=== PATIENT | male | born 1965 ===

== ENCOUNTER 2017-05-12 05:56 | Observation (INO) | payer MEDICAID ==
[2017-05-12 05:56] VITALS: BMI 34.7
--- NOTE | 2017-05-12 06:38 | ED PDOC ---
HPI:STROKE - Time Time: 06:20 - Historian Historian: Patient - Chief Complaint Chief Complaint: Weakness, Numbness - Onset Onset: Days - Timing Timing: Currently Symptomatic - Location Locate left: Upper extremity - TPA Positive for Contraindication: No Reason tPA is not being Administered: Onset occurred days ago - Notes: Notes:: 51 year old male presents to ED with complaints of LUE/LLE weakness and numbness x1 week and has a past medical history of pre-DM. Patient states his friend convinced him to present to ED after noticing unsteady gait and " dragging his feet" when he walked. (-) headache. PCP: Peter Handley NIHSS Stroke Scale - Date/Time Evaluation Performed Date Performed: 05/12/17 Time Performed: :31 - How Severe is the Stroke Level of Consciousness: 0=Alert LOC to Questions: 0=Both comments correct LOC to commands: 0=Obeys both correctly Best Gaze: 0=Normal Visual: 0=No visual loss Facial: 1=Minor asymmetry Motor Arm - Left: 1=Drift noted before 10 sec Motor Arm - Right: 0=No drift Motor Leg - Left: 1=Drift before 5 sec Motor Leg - Right: 0=No drift Limb Ataxia: 0=Absent Sensory: 0=Normal Best Language: 0=No aphasia Dysarthia: 1=Mild to moderate slurring Extinction & Inattention (Neglect): 0=Normal, no object Score: 4 rTPA Inclusion/Exclusion - Refusal of Treatment Patient Refused Treatment: No - Inclusion Criteria for Altepase Patient is 18 years or Older: Yes The Clinical Diagnosis of Ischemic Stroke That is Causing a Potentially Disabling Neurological Deficit: No Time of Onset is Well Established to be Less Than 270 Minute Before Treatment Would Begin: No Risk/Benefit Discussed With Patient/Family Member Present: No - Exclusion Criteria for Altepase Uncontrolled Hypertension at Time of Treatment (Systolic BP above 185 or Diastolic BP above 110 mmHg): No Active Internal Bleeding: No Known Bleeding Diathesis Including but Not Limited to: Platelets Below 100,000/ mm,PTT Above 40 sec After Heparin Use, Current Use of Oral Anitcoagulant With INR Greater Than 1.7 or PT Greater Than 15 secs: No Evidence of an Intracranial Hemorrhage: No Evidence of Major Acute Infarct With Signs Greater Than 1/3 MCA Territory: No Suspicion of Subarachnoid Hemorrhage on Pretreatment Evaluation Even if CT Head Negative For Hemorrhage: No - Warning to TPA With Conditions Following Conditions Weighed Against Anticipated Benefit: Yes Condition: Care Team Unable to Determine Eligibilty (Onset occurred days ago) Past Medical History Reviewed: Historical Data, Nursing Documentation, Vital Signs Vital Signs: Last Vital Signs Temp 98.5 F 05/12/17 06:11 Pulse 124 H 05/12/17 06:11 Resp 22 05/12/17 06:11 BP 115/79 05/12/17 06:11 Pulse Ox 96 05/12/17 06:11 - Medical History PMH: Anemia, Asthma, Diabetes, Pulmonary Embolism Denies: Atrial Fibrillation, CAD, Cardia Arrhythmia, CHF, HTN, Hypercholesterolemia, Mitral Valve Prolapse, Peripheral Edema, Chronic Kidney Disease - Surgical History Surgical History: Tonsillectomy Denies: Pacemaker - Family History Family History: States: Unknown Family Hx - Social History Current smoker - smoking cessation education provided: Yes Ex-Smoker (has not smoked in the last 12 months): No Alcohol: None Drugs: Cocaine - Immunization History Hx Tetanus Toxoid Vaccination: Yes Hx Influenza Vaccination: Yes Hx Pneumococcal Vaccination: No - Allergies Allergies/Adverse Reactions: Allergies Allergy/AdvReac Type Severity Reaction Status Date / Time Penicillins Allergy RASH Verified 05/12/17 06:11 Review of Systems ROS Statement: Except As Marked, All Systems Reviewed And Found Negative Neurological: Positive for: Weakness (LLE/LUE), Numbness (LLE/LUE). Negative for: Headache Physical Exam - Reviewed Nursing Documentation Reviewed: Yes Vital Signs Reviewed: Yes - Physical Exam Appears: Positive for: Non-toxic, No Acute Distress Head Exam: Positive for: ATRAUMATIC, NORMOCEPHALIC Skin: Positive for: Normal Color, Warm, Dry Eye Exam: Positive for: Normal appearance, EOMI, PERRL ENT: Positive for: Normal ENT Inspection Neck: Positive for: Normal, Painless ROM, Supple Cardiovascular/Chest: Positive for: Regular Rate, Rhythm. Negative for: Murmur Respiratory: Positive for: Normal Breath Sounds. Negative for: Respiratory Distress Gastrointestinal/Abdominal: Positive for: Normal Exam, Soft. Negative for: Tenderness Back: Positive for: Normal Inspection Extremity: Positive for: Normal ROM. Negative for: Deformity Neurologic/Psych: Positive for: Alert, Oriented, Cerebellar Tests ((+) left pronator drift. (+) cerebellar ataxia), Gait (unsteady), Aphasia (mild slurring) , Facial Droop (mild left sided). Negative for: Motor/Sensory Deficits (5/5 strength bilaterally, sensation intact) - ECG O2 Sat by Pulse Oximetry: 96 (RA) Pulse Ox Interpretation: Normal Medical Decision Making Medical Decision Makin Initial impression: CVA Initial plan: * T&S * CT HEAD * EKG * Labs * UDrug screen * Hemoglobin A1C * Lipid panel * Trop I * PTT/PT * CXR 0700 Patient will be signed out to Dr. Zamorano pending work up. Scribe Attestation: Documented by Alysa Minaya acting as a scribe for Bautista Lopez MD. Scribe Attestation: All medical record entries made by the Scribe were at my direction and personally dictated by me. I have reviewed the chart and agree that the record accurately reflects my personal performance of the history, physical exam, medical decision making, and the department course for this patient. I have also personally directed, reviewed, and agree with the discharge instructions and disposition. Disposition - Clinical Impression Clinical Impression: Numbness on left side - Disposition Disposition: Transfer of Care Disposition Time: 07:00 Condition: STABLE Forms: [employer] (Telugu) Patient Signed Over To: Robles Zamorano Jr. Handoff Comments: Pending work up
--- NOTE | 2017-05-12 07:16 | ED PDOC ---
- Laboratory Results Result Diagrams: 05/12/17 07:10 05/12/17 07:10 - ECG O2 Sat by Pulse Oximetry: 96 (RA) Pulse Ox Interpretation: Normal Medical Decision Making Medical Decision Making: Time: 07:00 --Patient endorsed from Dr. Lopez to me. --Pending full work-up. --Head CT FINDINGS: No intracranial hemorrhage. No intracranial edema. No evidence of infarct. Mild mucosal thickening of the right ethmoid sinus. The mastoid air cells are clear. The osseous structures are normal. IMPRESSION: No acute findings. Scribe Attestation: Documented by Teri Avila, acting as a scribe for Robles Zamorano MD. Provider Scribe Attestation: All medical record entries made by the Scribe were at my direction and personally dictated by me. I have reviewed the chart and agree that the record accurately reflects my personal performance of the history, physical exam, medical decision making, and the department course for this patient. I have also personally directed, reviewed, and agree with the discharge instructions and disposition. Disposition - Clinical Impression Clinical Impression: Numbness on left side, Hyperglycemia, Alcohol intoxication - POA Present On Arrival: None - Disposition Disposition: Routine/Home Disposition Time: 13:08 Condition: STABLE ED OBSERVATION Date of observation admission: 05/12/17 Time of observation admission: 11:23 - Observation admission statement Patient is being placed in observation because:: Pt with prolonged altered mental status (somnolence) secondary to alcohol intoxication. - Goals of Observation Goals of observation are:: Improvement of mental status - Progress Note Progress Note: 05/12/17 13:00 Pt is awake and feels better. Pt states these symptoms have been present for a long time. Pt will follow up as an outpatient.
--- NOTE | 2017-05-12 07:19 | CT ---
EXAM: CT Head Without Intravenous Contrast EXAM DATE/TIME: 05/12/2017 6:26 AM CLINICAL HISTORY: 51 years old, male; Signs and symptoms; Weakness, extremity; Left; Additional info: L sided weakness TECHNIQUE: Axial computed tomography images of the head/brain without intravenous contrast. All CT scans at this facility use one or more dose reduction techniques, viz.: automated exposure control; ma/kV adjustment per patient size (including targeted exams where dose is matched to indication; i.e. head); or iterative reconstruction technique. Coronal and sagittal reformatted images were created and reviewed. COMPARISON: CT - HEAD W/O CONTRAST 02/02/2016 6:42:00 AM FINDINGS: No intracranial hemorrhage. No intracranial edema. No evidence of infarct. Mild mucosal thickening of the right ethmoid sinus. The mastoid air cells are clear. The osseous structures are normal. IMPRESSION: No acute findings.
[2017-05-12 07:24] LABS: BASO % 0.6 % (0.0-2.0); EOS # 0.1 K/uL (0.0-0.7); EOS % 0.8 % (0.0-4.0); HEMATOCRIT 45.6 % (35.0-51.0); LYMPH # 2.5 K/uL (1.0-4.3); MEAN CELL VOLUME 90.9 fl (80.0-94.0); MEAN CORPUSCULAR HEMOGLOBIN 30.3 pg (27.0-31.0); MEAN CORPUSCULAR HGB CONC 33.3 g/dL (33.0-37.0); MEAN PLATELET VOLUME 7.9 fl (7.2-11.7); MONO # 0.7 K/uL (0.0-0.8); MONO % 10.2 % (0.0-10.0); NEUT # 3.5 K/uL (1.8-7.0); NEUT % 51.4 % (50.0-75.0); NRBC % 0.1 % (0.0-0.0); RED CELL DISTRIBUTION WIDTH 20.3 % (11.5-14.5); WHITE BLOOD COUNT 6.7 K/uL (4.8-10.8)
[2017-05-12 07:27] LABS: ALB/GLOB RATIO 1.2 (1.0-2.1); ALKALINE PHOSPHATASE 61 U/L (38-126); ALT/SGPT 124 U/L (21-72); AST/SGOT 92 U/L (17-59); BILIRUBIN,TOTAL 1.2 mg/dl (0.2-1.3); BLOOD UREA NITROGEN 7 mg/dl (9-20); CALCIUM 9.4 mg/dL (8.4-10.2); CARBON DIOXIDE 21 mmol/L (22-30); CHLORIDE 112 mmol/L (98-107); CHOLESTEROL 116 mg/dL (0-199); GFR AFRICAN-AMERICAN > 60; GLUCOSE,RANDOM 202 mg/dL (75-110); SODIUM 148 mmol/l (132-148); TOTAL PROTEIN 8.3 G/DL (6.3-8.2)
[2017-05-12 07:42] LABS: PARTIAL THROMBOPLASTIN TIME 30.6 Seconds (25.6-37.1)
--- NOTE | 2017-05-12 09:08 | CARD ---
APPROVED REPORT EKG Measurement Heart [id number] MI [id number] <Conclusion> Sinus tachycardia Nonspecific T wave abnormality Abnormal ECG
--- NOTE | 2017-05-12 09:28 | RAD ---
HISTORY: Left-sided weakness. COMPARISON: Comparison chest dated 02/02/2016 FINDINGS: LUNGS: Poor inspiration with low lung volumes, crowded bronchovascular markings and minor bibasilar atelectasis. PLEURA: No significant pleural effusion identified, no pneumothorax apparent. CARDIOVASCULAR: Normal. OSSEOUS STRUCTURES: No significant abnormalities. VISUALIZED UPPER ABDOMEN: Normal. OTHER FINDINGS: None. IMPRESSION: Poor inspiration with low lung volumes, crowded bronchovascular markings and minor bibasilar atelectasis. .
[2017-05-12 13:44] VITALS: BP 120/78; PULSE 87; RESP 19; TEMP 98
[2017-05-19 17:54] VITALS: O2SAT 96
== END 2017-05-12 13:43 | disposition home or self-care (01) ==
LOC: H.ER 05:56 → H.EROBSV 11:21
PROVIDERS: ADMIT Emergency Medicine; ATTEND Emergency Medicine
DX: R41.82 Altered mental status, unspecified (principal); F10.129 Alcohol abuse with intoxication, unspecified; R20.0 Anesthesia of skin; E11.65 Type 2 diabetes mellitus with hyperglycemia; F17.200 Nicotine dependence, unspecified, uncomplicated; J45.909 Unspecified asthma, uncomplicated
CPT/HCPCS: 70450; 71010; 80053; 80061; 80320; 80324; 80345; 80346; 80349; 80353; 80358; 80361; 83036; 83992; 84484; 85025; 85610; 85730; 86850; 86900; 93005; 99285; G0378

== ENCOUNTER 2017-06-22 05:02 | Observation (INO) | payer MEDICAID ==
[2017-06-22 05:20] VITALS: BMI 34.4
--- NOTE | 2017-06-22 05:26 | ED PDOC ---
HPI: Chest Pain Time Seen by Provider: 06/22/17 05:07 Chief Complaint (Nursing): Chest Pain Chief Complaint (Provider): Chest pain History Per: Patient History/Exam Limitations: no limitations Onset/Duration Of Symptoms: Days, Persistent Current Symptoms Are (Timing): Still Present Additional History Per: Patient Additional Complaint(s): The patient is a 52 yo male, past medical history of diabetes, presents to the ED for evaluation of chest pain present for the past couple weeks. He reports the pain is occasionally present on his right chest and occasionally on his left. Patient also reports associated upper back pain and posterior neck pain. patient states for the past couple months, he has occasional numbness to his extremities. He admits to drinking alcohol tonight but denies any drug use. No other medical complaints. Past Medical History Reviewed: Historical Data, Nursing Documentation, Vital Signs Vital Signs: Last Vital Signs Temp 98.5 F 06/22/17 05:14 Pulse 114 H 06/22/17 05:14 Resp 18 06/22/17 05:14 BP 129/79 06/22/17 05:14 Pulse Ox 96 06/22/17 06:43 - Medical History PMH: Anemia, Asthma, Diabetes, Pulmonary Embolism Denies: Atrial Fibrillation, CAD, Cardia Arrhythmia, CHF, HTN, Hypercholesterolemia, Mitral Valve Prolapse, Peripheral Edema, Chronic Kidney Disease - Surgical History Surgical History: Tonsillectomy Denies: Pacemaker - Family History Family History: States: No Known Family Hx, Unknown Family Hx - Immunization History Hx Tetanus Toxoid Vaccination: Yes Hx Influenza Vaccination: Yes Hx Pneumococcal Vaccination: No - Home Medications Home Medications: Ambulatory Orders Medication Instructions Recorded Aspirin 1 tab PO DAILY #30 tab.chew 05/12/17 - Allergies Allergies/Adverse Reactions: Allergies Allergy/AdvReac Type Severity Reaction Status Date / Time Penicillins Allergy RASH Verified 05/12/17 06:11 Review of Systems ROS Statement: Except As Marked, All Systems Reviewed And Found Negative ENT: Positive for: Ear Pain Musculoskeletal: Positive for: Neck Pain, Back Pain Neurological: Positive for: Numbness Physical Exam - Reviewed Nursing Documentation Reviewed: Yes Vital Signs Reviewed: Yes - Physical Exam Appears: Positive for: No Acute Distress Head Exam: Positive for: ATRAUMATIC, NORMAL INSPECTION, NORMOCEPHALIC Skin: Positive for: Warm, Dry Eye Exam: Positive for: Normal appearance Neck: Positive for: Normal, Supple Cardiovascular/Chest: Positive for: Regular Rate, Rhythm Respiratory: Positive for: Normal Breath Sounds. Negative for: Respiratory Distress Neurologic/Psych: Positive for: Alert, drug clerk II-XII (intact), Oriented, Mood/ Affect (normal ), Cerebellar Tests (normal ), Gait (normal ). Negative for: Motor/Sensory Deficits, Aphasia, Facial Droop - Laboratory Results Result Diagrams: 06/22/17 05:50 06/22/17 05:50 - ECG O2 Sat by Pulse Oximetry: 96 (RA) Pulse Ox Interpretation: Normal Medical Decision Making Medical Decision Making: Time: 519 Impression: Non-cardiac chest pain, alcohol intoxication Plan: -- Labs -- Chest x-ray -- Toradol 15 mg IV -- ED Obs pending troponin Reassess Scribe Attestation: Documented by Jackie Finn acting as a scribe for Bautista Lopez MD. Provider Attestation: All medical record entries made by the Scribe were at my direction and personally dictated by me. I have reviewed the chart and agree that the record accurately reflects my personal performance of the history, physical exam, medical decision making, and the department course for this patient. I have also personally directed, reviewed, and agree with the discharge instructions and disposition. ED OBSERVATION Date of observation admission: 06/22/17 Time of observation admission: 05:21 - Observation admission statement Patient is placed on observation because of need: for serial examinations to determine stability for disposition - Progress Note Progress Note: 06/22/17 06:42 Patient to be signed out to Dr. Lester pending troponin results, re-evaluation and disposition. Disposition - Clinical Impression Clinical Impression: Atypical chest pain, Alcohol intoxication - Patient ED Disposition Is Patient to be Admitted: Transfer of Care - Disposition Disposition: Transfer of Care Disposition Time: 05:21 Condition: STABLE Patient Signed Over To: Magalie Lester Handoff Comments: Pending troponin, re-eval, disposition
[2017-06-22 06:04] LABS: BASO % 0.6 % (0.0-2.0); EOS # 0.1 K/uL (0.0-0.7); EOS % 1.7 % (0.0-4.0); HEMATOCRIT 44.9 % (35.0-51.0); LYMPH # 2.2 K/uL (1.0-4.3); LYMPH % 30.2 % (20.0-40.0); MEAN CELL VOLUME 93.5 fl (80.0-94.0); MEAN CORPUSCULAR HEMOGLOBIN 31.3 pg (27.0-31.0); MEAN CORPUSCULAR HGB CONC 33.5 g/dL (33.0-37.0); MEAN PLATELET VOLUME 7.8 fl (7.2-11.7); MONO # 0.5 K/uL (0.0-0.8); MONO % 6.9 % (0.0-10.0); NEUT # 4.5 K/uL (1.8-7.0); NEUT % 60.6 % (50.0-75.0); NRBC % 0.1 % (0.0-0.0); WHITE BLOOD COUNT 7.4 K/uL (4.8-10.8)
[2017-06-22 06:21] LABS: ALCOHOL SERUM 144 mg/dl (0-10); BLOOD UREA NITROGEN 8 mg/dl (9-20); CALCIUM 9.6 mg/dL (8.4-10.2); CARBON DIOXIDE 22 mmol/L (22-30); GFR AFRICAN-AMERICAN > 60; GLUCOSE,RANDOM 184 mg/dL (75-110); PARTIAL THROMBOPLASTIN TIME 29.4 Seconds (25.6-37.1); POTASSIUM 3.9 MMOL/L (3.6-5.0); SODIUM 148 mmol/l (132-148)
[2017-06-22 06:30] LABS: CHLORIDE 108 mmol/L (98-107)
--- NOTE | 2017-06-22 07:01 | ED PDOC ---
- Laboratory Results Result Diagrams: 06/22/17 05:50 06/22/17 05:50 - ECG O2 Sat by Pulse Oximetry: 96 (RA) Medical Decision Making Medical Decision Makin -Patient transferred to [place] by Dr. Lopez, pending Troponin results. Second troponin WNL. Disposition - Clinical Impression Clinical Impression: Atypical chest pain, Alcohol intoxication - POA Present On Arrival: None - Disposition Disposition: Routine/Home Disposition Time: 10:43 Condition: STABLE
[2017-06-22 08:13] VITALS: RESP 16
--- NOTE | 2017-06-22 09:32 | RAD ---
HISTORY: cp COMPARISON: 05/12/2017 TECHNIQUE: Chest PA and lateral FINDINGS: LUNGS: No active pulmonary disease. PLEURA: No significant pleural effusion identified. No pneumothorax apparent. CARDIOVASCULAR: Normal. OSSEOUS STRUCTURES: No significant abnormalities. VISUALIZED UPPER ABDOMEN: Normal. OTHER FINDINGS: None. IMPRESSION: No active disease.
[2017-06-22 11:09] VITALS: BP 115/72; PULSE 91; TEMP 97.9; O2SAT 99
--- NOTE | 2017-06-22 21:30 | CARD ---
APPROVED REPORT EKG Measurement Heart [id number] ID [id number] <Conclusion> Sinus tachycardia Nonspecific T wave abnormality Abnormal ECG
== END 2017-06-22 11:09 | disposition home or self-care (01) ==
LOC: H.ER 05:02 → H.EROBSV 05:21
PROVIDERS: ADMIT Emergency Medicine; ATTEND Emergency Medicine
DX: R07.89 Other chest pain (principal); E11.9 Type 2 diabetes mellitus without complications; F10.129 Alcohol abuse with intoxication, unspecified; J45.909 Unspecified asthma, uncomplicated; Z79.82 Long term (current) use of aspirin; Z86.711 Personal history of pulmonary embolism
CPT/HCPCS: 71020; 80048; 80320; 84484; 85025; 85610; 85730; 93005; 96374; 99283; G0378; J1885

== ENCOUNTER 2017-08-17 04:47 | Emergency (ER) | payer MEDICAID ==
[2017-08-17 04:47] VITALS: BMI 34.4
[2017-08-17 04:59] VITALS: TEMP 99.2
--- NOTE | 2017-08-17 05:21 | ED PDOC ---
HPI: Abdomen Time Seen by Provider: 08/17/17 04:54 Chief Complaint (Nursing): GI Problem Chief Complaint (Provider): Rectal Bleeding History Per: Patient History/Exam Limitations: no limitations Onset/Duration Of Symptoms: Other (few months) Current Symptoms Are (Timing): Still Present Additional Complaint(s): Timi Macedo is a 52 y/o male with a past medical history of alcohol and substance abuse who presents to the ED complaining of intermittent rectal bleeding ongoing for the past few months. Patient admits to cocaine and alcohol use this evening. Denies associated nausea, vomiting, and diarrhea. Patient describes rectal bleeding as bright red blood. PMD: Peter Handley MD Past Medical History Reviewed: Historical Data, Nursing Documentation, Vital Signs Vital Signs: Last Vital Signs Temp 99.2 F 08/17/17 04:52 Pulse 102 H 08/17/17 07:39 Resp 16 08/17/17 07:39 BP 121/80 08/17/17 07:39 Pulse Ox 99 08/17/17 10:53 - Medical History PMH: Anemia, Asthma, Diabetes, Pulmonary Embolism Denies: Atrial Fibrillation, CAD, Cardia Arrhythmia, CHF, HTN, Hypercholesterolemia, Mitral Valve Prolapse, Peripheral Edema, Chronic Kidney Disease - Surgical History Surgical History: Tonsillectomy Denies: Pacemaker - Family History Family History: States: Unknown Family Hx - Social History Current smoker - smoking cessation education provided: Yes Alcohol: Other (Abuse) Drugs: Cocaine - Immunization History Hx Tetanus Toxoid Vaccination: Yes Hx Influenza Vaccination: Yes Hx Pneumococcal Vaccination: No - Home Medications Home Medications: Ambulatory Orders Medication Instructions Recorded Aspirin 1 tab PO DAILY #30 tab.chew 05/12/17 - Allergies Allergies/Adverse Reactions: Allergies Allergy/AdvReac Type Severity Reaction Status Date / Time Penicillins Allergy RASH Verified 05/12/17 06:11 Review of Systems ROS Statement: Except As Marked, All Systems Reviewed And Found Negative ( bright red blood) Gastrointestinal: Positive for: Hematochezia. Negative for: Nausea, Vomiting, Diarrhea Physical Exam - Reviewed Nursing Documentation Reviewed: Yes Vital Signs Reviewed: Yes - Physical Exam Appears: Positive for: Well, Non-toxic, No Acute Distress Head Exam: Positive for: ATRAUMATIC, NORMAL INSPECTION, NORMOCEPHALIC Skin: Positive for: Normal Color, Warm, Dry Eye Exam: Positive for: EOMI, Normal appearance, PERRL Neck: Positive for: Normal, Painless ROM, Supple Cardiovascular/Chest: Positive for: Regular Rate, Rhythm. Negative for: Murmur Respiratory: Positive for: Normal Breath Sounds. Negative for: Respiratory Distress Gastrointestinal/Abdominal: Positive for: Normal Exam, Bowel Sounds, Soft. Negative for: Tenderness Back: Positive for: Normal Inspection. Negative for: L CVA Tenderness, R CVA Tenderness, Vertebral Tenderness Extremity: Positive for: Normal ROM. Negative for: Pedal Edema, Deformity Neurologic/Psych: Positive for: Alert, Oriented. Negative for: Motor/Sensory Deficits - Laboratory Results Result Diagrams: 08/17/17 05:33 08/17/17 05:33 - ECG O2 Sat by Pulse Oximetry: 99 (RA) Pulse Ox Interpretation: Normal Medical Decision Making Medical Decision Making: Time: 05:06 Initial Impression: 52 y/o male with bright red blood per rectum in setting of substance abuse Plan: --EKG --Alcohol serum --CMP --Drug screen, urine --ED Urine dipstick --CBC w/ differential --Culture urine --Heplock insertion --Urinalysis Scribe Attestation: Documented by Mohan Knutson acting as a scribe for Byron Valladares MD. Scribe Attestation: All medical record entries made by the Scribe were at my direction and personally dictated by me. I have reviewed the chart and agree that the record accurately reflects my personal performance of the history, physical exam, medical decision making, and the department course for this patient. I have also personally directed, reviewed, and agree with the discharge instructions and disposition. Disposition - Clinical Impression Clinical Impression: Rectal bleeding, Alcohol intoxication - Disposition Referrals: Peter Handley MD [Primary Care Provider] - Disposition: Transfer of Care Disposition Time: 07:00 Condition: FAIR Additional Instructions: Follow up with your PCP in 2-3 days. Instructions: Rectal Bleeding (ED), Alcohol Intoxication (ED) Patient Signed Over To: Cristóbal Dougherty
[2017-08-17 06:02] LABS: BASO # 0.1 K/uL (0.0-0.2); BASO % 0.6 % (0.0-2.0); EOS # 0.1 K/uL (0.0-0.7); EOS % 0.9 % (0.0-4.0); HEMATOCRIT 45.5 % (35.0-51.0); LYMPH # 2.6 K/uL (1.0-4.3); MEAN CELL VOLUME 95.6 fl (80.0-94.0); MEAN CORPUSCULAR HEMOGLOBIN 32.1 pg (27.0-31.0); MEAN CORPUSCULAR HGB CONC 33.6 g/dL (33.0-37.0); MONO # 0.7 K/uL (0.0-0.8); MONO % 8.2 % (0.0-10.0); NEUT # 5.4 K/uL (1.8-7.0); NEUT % 61.3 % (50.0-75.0); NRBC % 0.1 % (0.0-0.0); RED CELL DISTRIBUTION WIDTH 15.9 % (11.5-14.5); WHITE BLOOD COUNT 8.8 K/uL (4.8-10.8)
[2017-08-17 06:03] LABS: RBC URINE 4 /hpf (0-3); URINE BACTERIA RARE (<OCC); URINE BILIRUBIN NEGATIVE (NEGATIVE); URINE BLOOD SMALL (NEGATIVE); URINE COLOR STRAW (YELLOW); URINE GLUCOSE (UA) NEG (Normal); URINE KETONE NEGATIVE (NEGATIVE); URINE LEUKOCYTE ESTERASE NEG Leu/uL (Negative); URINE PROTEIN NEGATIVE (NEGATIVE); URINE UROBILINOGEN 0.2-1.0 mg/dL (0.2-1.0); WBC URINE < 1 /hpf (0-5)
[2017-08-17 06:10] LABS: ALCOHOL SERUM 140 mg/dl (0-10); ALKALINE PHOSPHATASE 59 U/L (38-126); ALT/SGPT 116 U/L (21-72); AST/SGOT 69 U/L (17-59); BILIRUBIN,TOTAL 1.4 mg/dl (0.2-1.3); BLOOD UREA NITROGEN 5 mg/dl (9-20); CALCIUM 9.6 mg/dL (8.4-10.2); CARBON DIOXIDE 25 mmol/L (22-30); CHLORIDE 107 mmol/L (98-107); GFR AFRICAN-AMERICAN > 60; GLUCOSE,RANDOM 135 mg/dL (75-110); POTASSIUM 3.9 MMOL/L (3.6-5.0); SODIUM 147 mmol/l (132-148); TOTAL PROTEIN 8.8 G/DL (6.3-8.2)
[2017-08-17] MEDS ORDERED: Iohexol 240 (50 ml) PO ONE (06:13)
[2017-08-17 06:16] LABS: ALB/GLOB RATIO 1.2 (1.0-2.1)
--- NOTE | 2017-08-17 07:04 | ED PDOC ---
- Laboratory Results Result Diagrams: 08/17/17 05:33 08/17/17 05:33 - ECG O2 Sat by Pulse Oximetry: 99 (RA) Medical Decision Making Medical Decision Makin -Patient transferred to [place] by Dr. Valladares, pending CT scan. 1030 Abd/Pelvis CT FINDINGS: LOWER THORAX: Stable 3-4 millimeter right middle lobe nodule (series 3, image 5). LIVER: Steatosis. Punctate hepatic calcification may represent prior granulomatous disease. No gross lesion or ductal dilatation. GALLBLADDER AND BILE DUCTS: Distended gallbladder with small dependent high attenuation focus. No gallbladder wall thickening or pericholecystic fluid. PANCREAS: Unremarkable. No gross lesion or ductal dilatation. SPLEEN: Unremarkable. ADRENALS: Unremarkable. No mass. KIDNEYS AND URETERS: Unremarkable. No hydronephrosis. No solid mass. VASCULATURE: Unremarkable. No aortic aneurysm. BOWEL: Unremarkable. No obstruction. No gross mural thickening. APPENDIX: Normal appendix. PERITONEUM: Bilateral fat containing inguinal hernias. No free fluid. No free air. LYMPH NODES: Unremarkable. No enlarged lymph nodes. BLADDER: Unremarkable. REPRODUCTIVE: Unremarkable. BONES: L4-5 degenerative changes with prominent disc osteophyte complex. OTHER FINDINGS: None. IMPRESSION: Questionable cholelithiasis without CT evidence for acute cholecystitis. Stable 3-4 millimeter right middle lobe pulmonary nodule. Additional findings as above Disposition - Disposition Referrals: Peter Handley MD [Primary Care Provider] - Forms: [employer] (Tunisian)
[2017-08-17] MEDS ORDERED: Iohexol 240 (50 ml) ONE (07:12)
[2017-08-17 07:40] VITALS: BP 121/80; PULSE 102; RESP 16
[2017-08-17] MEDS ORDERED: Iohexol 300 100 ML IJ ONE (09:45)
[2017-08-17] MEDS ORDERED: Sodium Chloride 0.9% 50 ML IV ONE (09:45)
--- NOTE | 2017-08-17 10:32 | CT ---
PROCEDURE: CT Abdomen and Pelvis with contrast HISTORY: abd pain COMPARISON: Correlation is made to CT angiography of the chest dated 02/02/2016. TECHNIQUE: Contrast dose: 95 mL Omnipaque 300 Radiation dose: Total exam DLP = 1229.7 mGy-cm. This CT exam was performed using one or more of the following dose reduction techniques: Automated exposure control, adjustment of the mA and/or kV according to patient size, and/or use of iterative reconstruction technique. FINDINGS: LOWER THORAX: Stable 3-4 millimeter right middle lobe nodule (series 3, image 5). LIVER: Steatosis. Punctate hepatic calcification may represent prior granulomatous disease. No gross lesion or ductal dilatation. GALLBLADDER AND BILE DUCTS: Distended gallbladder with small dependent high attenuation focus. No gallbladder wall thickening or pericholecystic fluid. PANCREAS: Unremarkable. No gross lesion or ductal dilatation. SPLEEN: Unremarkable. ADRENALS: Unremarkable. No mass. KIDNEYS AND URETERS: Unremarkable. No hydronephrosis. No solid mass. VASCULATURE: Unremarkable. No aortic aneurysm. BOWEL: Unremarkable. No obstruction. No gross mural thickening. APPENDIX: Normal appendix. PERITONEUM: Bilateral fat containing inguinal hernias. No free fluid. No free air. LYMPH NODES: Unremarkable. No enlarged lymph nodes. BLADDER: Unremarkable. REPRODUCTIVE: Unremarkable. BONES: L4-5 degenerative changes with prominent disc osteophyte complex. OTHER FINDINGS: None. IMPRESSION: Questionable cholelithiasis without CT evidence for acute cholecystitis. Stable 3-4 millimeter right middle lobe pulmonary nodule. Additional findings as above
--- NOTE | 2017-08-17 10:44 | CARD ---
APPROVED REPORT EKG Measurement Heart [id number] CT [id number] <Conclusion> Sinus tachycardia Nonspecific T wave abnormality Abnormal ECG
[2017-08-17 10:53] VITALS: O2SAT 99
== END 2017-08-17 11:22 | disposition home or self-care (01) ==
LOC: H.ER 04:47
DX: K62.5 Hemorrhage of anus and rectum (principal); F10.129 Alcohol abuse with intoxication, unspecified; E11.9 Type 2 diabetes mellitus without complications; F17.200 Nicotine dependence, unspecified, uncomplicated; J45.909 Unspecified asthma, uncomplicated; Z86.711 Personal history of pulmonary embolism; Z88.0 Allergy status to penicillin
CPT/HCPCS: 74177; 80053; 80320; 80324; 80345; 80346; 80349; 80353; 80358; 80361; 81003; 82948; 83992; 85025; 87086; 93005; 99284; Q9966; Q9967

== ENCOUNTER 2018-11-01 03:48 | Emergency (ER) | payer MEDICAID ==
[2018-11-01 03:48] VITALS: BMI 34.4
[2018-11-01 03:59] VITALS: RESP 16; TEMP 97.9
[2018-11-01] MEDS ORDERED: Multivitamin (MVI) 10 ML, Folic Acid 1 MG, Thiamine 100 MG in Dextrose 5%/0.45% NS 1,00... IV ONE (04:01)
[2018-11-01 04:37] LABS: BASO # 0.1 K/uL (0.0-0.2); BASO % 0.5 % (0.0-2.0); EOS % 0.1 % (0.0-4.0); HEMOGLOBIN 16.7 g/dL (12.0-18.0); LYMPH # 1.6 K/uL (1.0-4.3); LYMPH % 14.8 % (20.0-40.0); MEAN CELL VOLUME 88.5 fl (80.0-94.0); MEAN CORPUSCULAR HEMOGLOBIN 29.8 pg (27.0-31.0); MEAN CORPUSCULAR HGB CONC 33.7 g/dL (33.0-37.0); MEAN PLATELET VOLUME 8.7 fl (7.2-11.7); MONO # 0.9 K/uL (0.0-0.8); MONO % 8.1 % (0.0-10.0); NEUT # 8.1 K/uL (1.8-7.0); NEUT % 76.5 % (50.0-75.0); NRBC % 0.1 % (0.0-0.0); RBC 5.6 Mil/uL (4.40-5.90); WHITE BLOOD COUNT 10.6 K/uL (4.8-10.8)
--- NOTE | 2018-11-01 04:42 | ED PDOC ---
HPI: Psych/Substance Abuse Time Seen by Provider: 11/01/18 04:00 Chief Complaint (Nursing): Alcohol Ingestion Chief Complaint (Provider): Alcohol Ingestion History Per: Patient History/Exam Limitations: no limitations Modifying Factor(s): Alcohol Additional Complaint(s): 53 y/o male with history of alcohol abuse, carpal tunnel, chronic back pain, and arthritis was brought to the ED for alcohol intoxication. Patient was found on the steps of his home in an intoxicated states. He is conversing in the ED. Patient states he fell while trying to get into his home. Patient denies any medical complaints. Past Medical History Reviewed: Historical Data, Nursing Documentation, Vital Signs Vital Signs: Last Vital Signs Temp 97.9 F 11/01/18 03:52 Pulse 123 H 11/01/18 03:52 Resp 16 11/01/18 03:52 BP 131/93 H 11/01/18 03:52 Pulse Ox 98 11/01/18 03:52 - Medical History PMH: Anemia, Asthma, Diabetes, Pulmonary Embolism Denies: Atrial Fibrillation, CAD, Cardia Arrhythmia, CHF, HTN, Hypercholesterolemia, Mitral Valve Prolapse, Peripheral Edema, Chronic Kidney Disease - Surgical History Surgical History: Tonsillectomy Denies: Pacemaker Other surgeries: Carpal tunnel repair - Family History Family History: States: Unknown Family Hx - Immunization History Hx Tetanus Toxoid Vaccination: Yes Hx Influenza Vaccination: Yes Hx Pneumococcal Vaccination: No - Home Medications Home Medications: Ambulatory Orders Medication Instructions Recorded Aspirin 1 tab PO DAILY #30 tab.chew 05/12/17 - Allergies Allergies/Adverse Reactions: Allergies Allergy/AdvReac Type Severity Reaction Status Date / Time Penicillins Allergy RASH Verified 05/12/17 06:11 Review of Systems ROS Statement: Except As Marked, All Systems Reviewed And Found Negative Physical Exam - Reviewed Nursing Documentation Reviewed: Yes Vital Signs Reviewed: Yes - Physical Exam Appears: Positive for: Well, Non-toxic, No Acute Distress Head Exam: Positive for: ATRAUMATIC, NORMAL INSPECTION, NORMOCEPHALIC Skin: Positive for: Normal Color, Warm, DRY Eye Exam: Positive for: EOMI, Normal appearance, PERRL ENT: Positive for: Other (abrasion to left side of upper lip) Neck: Positive for: Normal, Painless ROM Cardiovascular/Chest: Positive for: Regular Rate, Rhythm, Tachycardia. Negative for: Murmur Respiratory: Positive for: Normal Breath Sounds. Negative for: Respiratory Distress Gastrointestinal/Abdominal: Positive for: Normal Exam, Soft. Negative for: Tenderness Back: Positive for: Normal Inspection Extremity: Positive for: Normal ROM, Other (left wrist has sutures where he had carpal tunnel repair). Negative for: Pedal Edema, Deformity Neurologic/Psych: Positive for: Alert, Oriented - Laboratory Results Result Diagrams: 11/01/18 04:15 11/01/18 04:15 - ECG O2 Sat by Pulse Oximetry: 98 (RA) Pulse Ox Interpretation: Normal Medical Decision Making Medical Decision Making: Time: 04:01 Initial Impression: 53 y/o intoxicated male s/p fall Initial Plan: * Labs * Banana Bag * RAD Knee 05:55 RAD of both Hip and Knee demonstrate no fracture or dislocatoin. Patient is clinically sober and stable for discharge. diagnosis is alcohol intoxication. Scribe Attestation: Documented by Saturnino Mazariegos acting as a scribe for Byron Valladares MD. Provider Scribe Attestation: All medical record entries made by the Scribe were at my direction and pers onally dictated by me. I have reviewed the chart and agree that the record accurately reflects my personal performance of the history, physical exam, medical decision making, and the department course for this patient. I have also personally directed, reviewed, and agree with the discharge instructions and disposition. Disposition - Clinical Impression Clinical Impression: Alcohol intoxication - Patient ED Disposition Is Patient to be Admitted: No - Disposition Disposition: Routine/Home Disposition Time: 05:55 Condition: STABLE Additional Instructions: ALYSON KRAUSE, thank you for letting us take care of you today. Your provider was Byron Valladares MD and you were treated for MEDICAL CLEARANCE. The emergency medical care you received today was directed at your acute symptoms. If you were prescribed any medication, please fill it and take as directed. It may take several days for your symptoms to resolve. Return to the Emergency Department if your symptoms worsen, do not improve, or if you have any other problems. Please contact your doctor or call one of the physicians/clinics you have been referred to that are listed on the Patient Visit Information form that is included in your discharge packet. Bring any paperwork you were given at dischar ge with you along with any medications you are taking to your follow up visit. Our treatment cannot replace ongoing medical care by a primary care provider outside of the emergency department. Thank you for allowing the [facility] team to be part of your care today. If you had an X-Ray or CT scan: A Radiologist will review the ED reading if any change in treatment is needed we will contact you. If you had a blood, urine, or wound culture: It will take several days for the results, if any change in treatment is needed we will contact you. If you had an STI test: It will take 48 hours for the results. Please call after 1 week if you have not heard back. Instructions: Alcohol Use - When Is Drinking a Problem? Forms: CLEAR (Citizen Of [place])
[2018-11-01 04:58] LABS: BLOOD UREA NITROGEN 7 mg/dl (9-20); CALCIUM 9.7 mg/dL (8.4-10.2); GFR NON-AFRICAN AMERICAN > 60
[2018-11-01 05:01] LABS: ALBUMIN 5.3 g/dL (3.5-5.0)
[2018-11-01 05:02] LABS: ALB/GLOB RATIO 1.1 (1.0-2.1); ALT/SGPT 36 U/L (21-72); AST/SGOT 58 U/L (17-59)
[2018-11-01 08:48] LABS: BARBITURATES, UR NEGATIVE (NEGATIVE); BENZODIAZEPINES, UR NEGATIVE (NEGATIVE); OPIATES, UR NEGATIVE (NEGATIVE); PHENCYCLIDINE, UR NEGATIVE (NEGATIVE)
[2018-11-01 10:28] VITALS: O2SAT 100
[2018-11-01 11:38] VITALS: BP 132/85; PULSE 95
--- NOTE | 2018-11-01 12:58 | RAD ---
Date of service: 11/01/2018 PROCEDURE: Bilateral Knee Radiographs. HISTORY: Pain COMPARISON: None. FINDINGS: BONES: Right Knee: Normal. No fracture. Left Knee: Normal. No fracture. JOINTS: Right Knee: Normal. No osteoarthritis. Left knee: Normal. No osteoarthritis. SOFT TISSUES: Right Knee: Normal. Left Knee: There are small ossific densities in the patellar tendon at its attachment to the tibia. JOINT EFFUSION: Right Knee: Small suprapatellar joint effusion. Left Knee: None. OTHER FINDINGS: None. IMPRESSION: No acute displaced fracture or dislocation. Small ossific densities in the left inferior patellar tendon at its attachment to the tibial tuberosity which may represent tendon calcifications/ossification or old avulsion fractures.
--- NOTE | 2018-11-01 13:05 | RAD ---
PROCEDURE: Left Hip X-ray Radiographs. HISTORY: Pain COMPARISON: None. FINDINGS: BONES: Bone alignment and mineralization are normal. There is no acute displaced fracture or bone destruction. JOINTS: There is mild degenerative osteoarthrosis in the hip joints with reduced joint spaces and marginal spurring. There is mild osteitis pubis. The sacroiliac joints are normal. SOFT TISSUES: Normal. OTHER FINDINGS: None. IMPRESSION: No acute fracture or dislocation. Mild degenerative osteoarthrosis in the sacroiliac joints.
== END 2018-11-01 05:49 | disposition home or self-care (01) ==
LOC: H.ER 03:48
DX: F10.129 Alcohol abuse with intoxication, unspecified (principal); M25.559 Pain in unspecified hip; M25.569 Pain in unspecified knee; W19.XXXA Unspecified fall, initial encounter; Y92.89 Other specified places as the place of occurrence of the external cause; E11.9 Type 2 diabetes mellitus without complications; G89.29 Other chronic pain; Z86.711 Personal history of pulmonary embolism; Z88.0 Allergy status to penicillin
CPT/HCPCS: 73522; 73562; 80053; 80320; 80324; 80345; 80346; 80349; 80353; 80358; 80361; 82948; 83992; 85025; 96374; 99284; J3411; J7042

== ENCOUNTER 2019-01-31 04:29 | Emergency (ER) | payer MEDICAID ==
[2019-01-31 04:29] VITALS: BMI 34.4
[2019-01-31] MEDS ORDERED: Sodium Chloride 0.9% 1,000 ML IV STA (04:52)
--- NOTE | 2019-01-31 05:28 | ED PDOC ---
HPI: Chest Pain Time Seen by Provider: 01/31/19 04:38 Chief Complaint (Nursing): Chest Pain History Per: Patient History/Exam Limitations: no limitations Onset/Duration Of Symptoms: Days Current Symptoms Are (Timing): Still Present Additional Complaint(s): Hx of DM, obesity, arthritis, ETOH abuse presenting with knee pain and hip pain as well as chest pain. States he has arthritis of his hips and knees and is supposed to be starting physical therapy soon. States that he was drinking alcohol tonight and while climbing stairs to go into his apartment, he had trouble climbing all the way into his apartment becuase of knee and hip pain. Denies falling or injuries. Additionally, patient states that for the past 3 days he has had nonradiating chest pain on the L chest, nonexertional, not associated with shortness of breath or sweats. Denies cough, fevers, chills. States he drank "a few beers" tonight but denies drugs. PMD: Dr. Marquez Past Medical History Reviewed: Historical Data, Nursing Documentation, Vital Signs Vital Signs: Last Vital Signs Temp 97.8 F 01/31/19 04:37 Pulse 119 H 01/31/19 04:37 Resp 20 01/31/19 04:37 BP 122/76 01/31/19 04:37 Pulse Ox 95 01/31/19 04:37 Primary Care Provider: Rd Marquez - Medical History PMH: Anemia, Asthma, Diabetes, Pulmonary Embolism Denies: Atrial Fibrillation, CAD, Cardia Arrhythmia, CHF, HTN, Hypercholesterolemia, Mitral Valve Prolapse, Peripheral Edema, Chronic Kidney Disease - Surgical History Surgical History: Tonsillectomy Denies: Pacemaker - Family History Family History: States: Unknown Family Hx - Immunization History Hx Tetanus Toxoid Vaccination: Yes Hx Influenza Vaccination: Yes Hx Pneumococcal Vaccination: No - Home Medications Home Medications: Ambulatory Orders Medication Instructions Recorded Aspirin 1 tab PO DAILY #30 tab.chew 05/12/17 - Allergies Allergies/Adverse Reactions: Allergies Allergy/AdvReac Type Severity Reaction Status Date / Time Penicillins Allergy RASH Verified 05/12/17 06:11 MICHAEL Risk Score for UA/NSTEMI - MICHAEL Risk Score Age > 64: NO 3 or more CAD Risk Factors: NO Known CAD (Stenosis greater than 50%): NO Aspirin use in past 7 days: NO Severe Angina: NO EKG ST changes greater than 0.5mm: NO Positive Cardiac Marker: NO MICHAEL Score: 0 Risk %: 5% Review of Systems ROS Statement: Except As Marked, All Systems Reviewed And Found Negative Cardiovascular: Positive for: Chest Pain Musculoskeletal: Positive for: Other (Knee and Hip pain) Physical Exam - Reviewed Nursing Documentation Reviewed: Yes Vital Signs Reviewed: Yes - Physical Exam Appears: Positive for: Well, Non-toxic, No Acute Distress Head Exam: Positive for: ATRAUMATIC, NORMAL INSPECTION, NORMOCEPHALIC Skin: Positive for: Normal Color, Warm, DRY Eye Exam: Positive for: EOMI, Normal appearance, PERRL ENT: Positive for: Normal ENT Inspection Neck: Positive for: Normal, Painless ROM Cardiovascular/Chest: Positive for: Regular Rate, Rhythm Respiratory: Positive for: CNT, Normal Breath Sounds Gastrointestinal/Abdominal: Positive for: Normal Exam, Soft Back: Positive for: Normal Inspection Extremity: Positive for: Normal ROM, Other (Knees appear normal bilaterally- no effusion, redness, near full range of motion; hips palpated without illiciting signfiicant tenderness, no laxity). Negative for: Tenderness, Deformity Neurological/Psych: Positive for: Awake, Alert, Normal Tone - ECG ECG Rhythm: Positive for: Normal QRS, Normal ST Segment, Nonspecific Changes ((TWI in 1 and AVL unchanged from 2017)) O2 Sat by Pulse Oximetry: 95 Medical Decision Making Medical Decision Makin53 year old with DM, ETOH abuse, obesity presenting with chronic knee pain and chest pain --Comfortable appearance, BP normal, tachycaridc --Chart reviews show longstanding history of tachycardia, possibly related currently to alcohol usage and dehydration from not consuming enough water --Chest pain is atypical for cardiac chest pain, will obtain 2 sets of cardiac biomarkers --Knee pain is nonacute, will provide NSAID for arthritic pain --Will continue to observe on monitor 700 --Will endorse to Dr. Jerez pending 2nd troponin and re-eval Disposition - Clinical Impression Clinical Impression: Chest wall pain - Patient ED Disposition Is Patient to be Admitted: Transfer of Care - Disposition Disposition: Transfer of Care Disposition Time: 07:00 Condition: STABLE Patient Signed Over To: Cassius Jerez Handoff Comments: pending repeat top and re-eval
[2019-01-31 05:33] LABS: BASO % 0.4 % (0.0-2.0); EOS % 0.3 % (0.0-4.0); HEMOGLOBIN 16.3 g/dL (12.0-18.0); LYMPH # 1.7 K/uL (1.0-4.3); LYMPH % 16.8 % (20.0-40.0); MEAN CELL VOLUME 87.5 fl (80.0-94.0); MEAN CORPUSCULAR HEMOGLOBIN 29.3 pg (27.0-31.0); MEAN CORPUSCULAR HGB CONC 33.4 g/dL (33.0-37.0); MEAN PLATELET VOLUME 8.6 fl (7.2-11.7); MONO # 0.7 K/uL (0.0-0.8); MONO % 7.1 % (0.0-10.0); NEUT # 7.6 K/uL (1.8-7.0); NEUT % 75.4 % (50.0-75.0); NRBC % 0.1 % (0.0-0.0); RBC 5.57 Mil/uL (4.40-5.90); RED CELL DISTRIBUTION WIDTH 16.3 % (11.5-14.5)
[2019-01-31 05:42] LABS: BLOOD UREA NITROGEN 6 mg/dl (9-20); CALCIUM 9.5 mg/dL (8.4-10.2); GFR NON-AFRICAN AMERICAN > 60
[2019-01-31 05:58] LABS: BARBITURATES, UR NEGATIVE (NEGATIVE); BENZODIAZEPINES, UR NEGATIVE (NEGATIVE); OPIATES, UR NEGATIVE (NEGATIVE); PHENCYCLIDINE, UR NEGATIVE (NEGATIVE)
--- NOTE | 2019-01-31 07:05 | ED PDOC ---
- Laboratory Results Result Diagrams: 01/31/19 05:18 01/31/19 05:18 Lab Results: Troponin I < 0.0120 ng/mL (0.00-0.120) 01/31/19 05:18 - ECG ECG: Positive for: Interpreted By Me, Viewed By Me ECG Rhythm: Positive for: Nonspecific Changes O2 Sat by Pulse Oximetry: 96 Pulse Ox Interpretation: Normal - Radiology X-Ray: Read By Radiologist X-Ray Interpretation: No Acute Disease - Progress ED Course And Treament: 1246: Pt. stable. No acute. Pain free. Tolerated po. FU with pcp. Second trop neg. Medical Decision Making Medical Decision Making: Time: 0700 --Patient endorsed to provider by Dr. Lopez, with chest, knee, and hip pain. (+) cocaine and other substances, otherwise, negative work-up. EKG: same as previous as per Dr. Lopez. Pending 2nd troponin and re-eval. Time: 1130 --repeat trop: (-) -------- Scribe Attestation: Documented by She Rush, acting as a scribe for Cassius Jerez MD. Provider Scribe Attestation: All medical record entries made by the Scribe were at my direction and personally dictated by me. I have reviewed the chart and agree that the record accurately reflects my personal performance of the history, physical exam, medical decision making, and the department course for this patient. I have also personally directed, reviewed, and agree with the discharge instructions and disposition. Disposition Counseled Patient/Family Regarding: Studies Performed, Diagnosis, Need For Followup - Clinical Impression Clinical Impression: Cocaine abuse, Chest pain, Alcohol intoxication - POA Present On Arrival: None - Disposition Referrals: [facility] [Outside] - 02/04/19 Disposition: Routine/Home Disposition Time: 12:47 Condition: STABLE Additional Instructions: Return if not better in 3 days. Instructions: Alcohol Use - When Is Drinking a Problem?, Cocaine Use Disorder, Chest Pain (DC)
--- NOTE | 2019-01-31 09:44 | CARD ---
APPROVED REPORT Date of service: 01/31/2019 EKG Measurement Heart [id number] <Conclusion> Sinus tachycardia Nonspecific T wave abnormality Abnormal ECG
--- NOTE | 2019-01-31 11:11 | RAD ---
Date of service: 01/31/2019 HISTORY: Chest pain. COMPARISON: 06/22/2017. TECHNIQUE: Chest PA and lateral views FINDINGS: LUNGS: No active pulmonary disease. PLEURA: No significant pleural effusion identified. No pneumothorax apparent. CARDIOVASCULAR: No aortic atherosclerotic calcification present. Normal cardiac size. No pulmonary vascular congestion. OSSEOUS STRUCTURES: No significant abnormalities. VISUALIZED UPPER ABDOMEN: Normal. OTHER FINDINGS: None. IMPRESSION: No active disease. No significant interval change compared to the prior examination(s). Concordant results with the preliminary interpretation rendered by the emergency department physician procedure.
[2019-01-31 13:06] VITALS: BP 123/68; PULSE 72; RESP 20; TEMP 98.6; O2SAT 98
== END 2019-01-31 13:07 | disposition home or self-care (01) ==
LOC: H.ER 04:29
DX: F14.10 Cocaine abuse, uncomplicated (principal); R07.89 Other chest pain; F10.129 Alcohol abuse with intoxication, unspecified
CPT/HCPCS: 71046; 80048; 80320; 80324; 80345; 80346; 80349; 80353; 80358; 80361; 83992; 84484; 85025; 93005; 96360; 96374; 99285; J1885; J7030